=== PATIENT | female | born 1965 | race Caucasian/White ===

== ENCOUNTER → 2016-10-31 | Outpatient (CLI) | payer OTHER | LOC: EMI 09:00 | DX: H93.13 Tinnitus, bilateral (principal); R42 Dizziness and giddiness; H81.93 Unspecified disorder of vestibular function, bilateral; H93.293 Other abnormal auditory perceptions, bilateral | CPT/HCPCS: 70553; A9577; J7050 ==

== ENCOUNTER → 2016-11-13 | Outpatient (CLI) | payer OTHER ==
[2016-11-13 14:27] LABS: BUN/CREATININE RATIO 10 (0-10)
== END ==
LOC: LAB 13:20
PROVIDERS: Family Medicine
DX: M81.0 Age-related osteoporosis without current pathological fracture (principal); E78.5 Hyperlipidemia, unspecified
CPT/HCPCS: 36415; 80053; 80061

== ENCOUNTER → 2020-10-06 | Outpatient (CLI) | payer OTHER ==
[~2020-10-06] MED LIST: ACETAMINOPHEN500 M1 PO; CRESTOR40 MG PO; DIAZEPAM5 MG PO; ETHAMBUTOL HCL400 MG PO; INDERAL TAB 1010 MG PO; IPRAT-ALBUT 0.5-3 ML INH; ISONIAZID TAB300 MG PO; MEDROL DOSEPAK 24 MG PO; MIDODRINE HCL5 MG PO; MOXIFLOXACIN H400 MG PO; MUCINEX600 MG PO; NEBULIZER UNIT INH; PROAIR HFA8.5 GM INH; PROZAC 20 MG CA20 MG PO; PYRAZINAMIDE500 MG PO; RIFAMPIN300 MG PO; VITAMIN B-650 MG PO; ZITHROMAX250 MG PO
== END ==
LOC: MAMO 12:31
DX: Z12.31 Encounter for screening mammogram for malignant neoplasm of breast (principal)
CPT/HCPCS: 77063; 77067

== ENCOUNTER → 2020-10-27 | Outpatient (CLI) | payer OTHER ==
[2020-10-27 16:42] LABS: BUN/CREATININE RATIO 11 (0-10)
== END ==
LOC: LAB 13:11
PROVIDERS: Internal Medicine Nephrology
DX: E87.1 Hypo-osmolality and hyponatremia (principal); R91.8 Other nonspecific abnormal finding of lung field
CPT/HCPCS: 36415; 71046; 80048; 82436; 82533; 83935; 84133; 84300; 84443

== ENCOUNTER → 2020-11-17 | Outpatient (CLI) | payer OTHER | LOC: HEART 5 10:30 | DX: R06.00 Dyspnea, unspecified (principal); J98.4 Other disorders of lung; F17.210 Nicotine dependence, cigarettes, uncomplicated; Z87.01 Personal history of pneumonia (recurrent) | CPT/HCPCS: 71046; 94060; 94729 ==

== ENCOUNTER → 2020-12-01 | Outpatient (CLI) | payer OTHER | LOC: CT 11-29 15:30 | DX: Z09 Encounter for follow-up examination after completed treatment for conditions other than malignant neoplasm (principal); Z87.01 Personal history of pneumonia (recurrent); R91.1 Solitary pulmonary nodule | CPT/HCPCS: 71260; Q9967 ==

== ENCOUNTER → 2020-12-09 | Day surgery (SDC) | payer OTHER | END | disposition home or self-care (01) | LOC: OR 06:33 | DX: J98.4 Other disorders of lung (principal); J84.112 Idiopathic pulmonary fibrosis; J93.9 Pneumothorax, unspecified; J44.9 Chronic obstructive pulmonary disease, unspecified; K21.9 Gastro-esophageal reflux disease without esophagitis; F32.1 Major depressive disorder, single episode, moderate; F41.1 Generalized anxiety disorder; E78.5 Hyperlipidemia, unspecified; M81.0 Age-related osteoporosis without current pathological fracture; F17.210 Nicotine dependence, cigarettes, uncomplicated; Z79.899 Other long term (current) drug therapy | CPT/HCPCS: 71045; 71046; 76000; 87015; 87070; 87116; 87205; 87206; 93005; J2250; J2704; J7120 ==

== ENCOUNTER 2020-12-13 05:58 | Inpatient (IN) | payer OTHER ==
[~2020-12-13] VITALS: Ht 149.9 cm; Wt 51.7 kg
[~2020-12-13 05:58] MED LIST changes: -ACETAMINOPHEN500 M1 PO; -ETHAMBUTOL HCL400 MG PO; -IPRAT-ALBUT 0.5-3 ML INH; -ISONIAZID TAB300 MG PO; -MIDODRINE HCL5 MG PO; -MOXIFLOXACIN H400 MG PO; -MUCINEX600 MG PO; -NEBULIZER UNIT INH; -PROAIR HFA8.5 GM INH; -PYRAZINAMIDE500 MG PO; -RIFAMPIN300 MG PO; -VITAMIN B-650 MG PO
[2020-12-13 07:15] LABS: HEMOGLOBIN 14.1 gm/dl (12.3-15.3); RED BLOOD COUNT 5.1 M/UL (4.00-5.10); WHITE BLOOD COUNT 12.7 K/UL (4.5-11.0)
[2020-12-13 07:27] LABS: BUN/CREATININE RATIO 13 (0-10)
[2020-12-14 03:56] LABS: WHITE BLOOD COUNT 12.4 K/UL (4.5-11.0)
[2020-12-14 04:02] LABS: HEMOGLOBIN 11.7 gm/dl (12.3-15.3); RED BLOOD COUNT 4.22 M/UL (4.00-5.10)
[2020-12-14 04:51] LABS: BUN/CREATININE RATIO 18 (0-10)
[2020-12-14] MEDS ORDERED: IPRAT-ALBUT 0.5-3 ML INH (12:53)
[2020-12-14] MEDS ORDERED: NEBULIZER UNIT INH (12:53)
--- NOTE | 2020-12-14 15:24 | NUR ---
DR PINON REMOVED CHEST TUBE AT BEDSIDE. I COVERED WITH 4X4 AND TAPE ON SITE PER DR PINON INSTRUCTION. PT TOLERATED WELL. NO DRAINAGE OR BLOOD. SITE WNL. PT INSTRUCTED ON POST CARE, RESTRICTIONS AND WHEN TO CALL THE DOC FOR ANY COMPLICATIONS OR RETURN TO THE ER FOR SOB.
== END 2020-12-14 14:50 | disposition home or self-care (01) | DRG 199 ==
LOC: ER1 05:58 → MED SURG 4 16:28
PROVIDERS: Family Medicine; Physician Assistant Medical; ADMIT Internal Medicine
PROC: 0W9930Z Drainage of Right Pleural Cavity with Drainage Device, Percutaneous Approach (ICD-10-PCS; principal; 2020-12-14)
DX: J93.9 Pneumothorax, unspecified (principal); J96.01 Acute respiratory failure with hypoxia; R91.1 Solitary pulmonary nodule; E78.00 Pure hypercholesterolemia, unspecified; Z20.822 Contact with and (suspected) exposure to COVID-19; F17.210 Nicotine dependence, cigarettes, uncomplicated; Z90.710 Acquired absence of both cervix and uterus; Z98.51 Tubal ligation status; Z80.2 Family history of malignant neoplasm of other respiratory and intrathoracic organs
CPT/HCPCS: 32551; 71045; 80048; 80053; 82550; 82553; 83735; 83874; 84484; 85025; 85027; 85610; 93005; 99285; C1729; J2270; J2405; U0002

== ENCOUNTER 2020-12-17 12:45 | Inpatient (IN) | payer OTHER ==
[~2020-12-17] VITALS: Ht 149.9 cm; Wt 51.7 kg
[~2020-12-17 12:45] MED LIST changes: +IPRAT-ALBUT 0.5-3 ML INH; +NEBULIZER UNIT INH
[2020-12-17 15:26] LABS: HEMOGLOBIN 13.2 gm/dl (12.3-15.3); RED BLOOD COUNT 4.76 M/UL (4.00-5.10)
[2020-12-17 15:45] LABS: BUN/CREATININE RATIO 12 (0-10)
[2020-12-18 03:44] LABS: HEMOGLOBIN 11.4 gm/dl (12.3-15.3); WHITE BLOOD COUNT 11.4 K/UL (4.5-11.0)
[2020-12-18 03:50] LABS: RED BLOOD COUNT 4.22 M/UL (4.00-5.10)
[2020-12-18 04:01] LABS: BUN/CREATININE RATIO 10 (0-10)
[2020-12-18 10:04] LABS: ADENOVIRUS F 40/41 Not Detected (Negative); ASTROVIRUS Not Detected (Negative); CAMPYLOBACTER Not Detected (Negative); CLOSTRIDIUM DIFFICILE TOX A/B Not Detected (Negative); CRYPTOSPORIDIUM Not Detected (Negative); E.COLI 0157 Not Detected (Negative); ENTAMOEBA HISTOLYTICA Not Detected (Negative); ENTEROAGGREGATIVE E.COLI (EAEC Not Detected (Negative); ENTEROPATHOGENIC E.COLI (EPEC) Not Detected (Negative); ENTEROTOXIGENIC E.COLI (ETEC) Not Detected (Negative); GIARDIA LAMBLIA Not Detected (Negative); NOROVIRUS GI/GII Not Detected (Negative); PLESIOMONAS SHIGELLOIDES Not Detected (Negative); ROTOVIRUS A Not Detected (Negative); SALMONELLA Not Detected (Negative); SAPOVIRUS Not Detected (Negative); SHIG/ENTEROINVAS.ECOLI (EIEC) Not Detected (Negative); SHIGA-LIK TOX.PRO.E.COLI (STEC Not Detected (Negative); VIBRIO Not Detected (Negative); VIBRIO CHOLERAE Not Detected (Negative); YERSINIA ENTEROCOLITICA Not Detected (Negative)
[2020-12-19 03:14] LABS: HEMOGLOBIN 12.1 gm/dl (12.3-15.3); RED BLOOD COUNT 4.43 M/UL (4.00-5.10)
[2020-12-19 03:30] LABS: BUN/CREATININE RATIO 10 (0-10)
--- NOTE | 2020-12-19 16:54 | NUR ---
REPORT GIVEN TO ESME ON 3B AT [facility]
== END 2020-12-19 17:29 | disposition short-term general hospital (02) | DRG 178 ==
LOC: RAD 12:45 → PROG CARE 14:14
PROVIDERS: Internal Medicine Infectious Disease; ADMIT Internal Medicine Pulmonary Disease
DX: J69.0 Pneumonitis due to inhalation of food and vomit (principal); J93.9 Pneumothorax, unspecified; R19.7 Diarrhea, unspecified; E87.6 Hypokalemia; R91.1 Solitary pulmonary nodule; Z20.822 Contact with and (suspected) exposure to COVID-19; E78.5 Hyperlipidemia, unspecified; F17.210 Nicotine dependence, cigarettes, uncomplicated; M85.80 Other specified disorders of bone density and structure, unspecified site; K21.9 Gastro-esophageal reflux disease without esophagitis; I10 Essential (primary) hypertension; F32.9 Major depressive disorder, single episode, unspecified; F41.9 Anxiety disorder, unspecified; J45.909 Unspecified asthma, uncomplicated; I25.10 Atherosclerotic heart disease of native coronary artery without angina pectoris; Z90.710 Acquired absence of both cervix and uterus; Z80.8 Family history of malignant neoplasm of other organs or systems; Z82.49 Family history of ischemic heart disease and other diseases of the circulatory system; Z80.41 Family history of malignant neoplasm of ovary
CPT/HCPCS: ECHO; 36415; 71046; 71250; 80048; 80053; 83605; 83735; 83880; 85025; 86140; 87278; 87507; 93306; 94760; J1335; J3480; J7121; U0002

== ENCOUNTER 2021-01-04 06:55 | Inpatient (IN) | payer OTHER ==
[~2021-01-04] VITALS: Ht 149.9 cm; Wt 50.0 kg
[2021-01-04 08:10] LABS: HEMOGLOBIN 13.3 gm/dl (12.3-15.3); RED BLOOD COUNT 4.89 M/UL (4.00-5.10)
[2021-01-04 08:26] LABS: BUN/CREATININE RATIO 13 (0-10)
[2021-01-05 19:20] LABS: HEMOGLOBIN 11.8 gm/dl (12.3-15.3); WHITE BLOOD COUNT 20.3 K/UL (4.5-11.0)
[2021-01-05 19:34] LABS: RED BLOOD COUNT 4.36 M/UL (4.00-5.10)
[2021-01-05 19:38] LABS: BUN/CREATININE RATIO 10 (0-10)
[2021-01-06 07:26] LABS: HEMOGLOBIN 11.8 gm/dl (12.3-15.3); RED BLOOD COUNT 4.43 M/UL (4.00-5.10); WHITE BLOOD COUNT 19.9 K/UL (4.5-11.0)
[2021-01-06 08:09] LABS: BUN/CREATININE RATIO 8 (0-10)
[2021-01-06] MEDS ORDERED: PROAIR HFA8.5 GM INH (11:06)
[2021-01-06] MEDS ORDERED: VITAMIN B-650 MG PO (11:07)
[2021-01-06] MEDS ORDERED: RIFAMPIN300 MG PO (11:07)
[2021-01-06] MEDS ORDERED: PYRAZINAMIDE500 MG PO (11:07)
[2021-01-06] MEDS ORDERED: ACETAMINOPHEN500 M1 PO (11:08)
[2021-01-06] MEDS ORDERED: ETHAMBUTOL HCL400 MG PO (11:09)
[2021-01-06] MEDS ORDERED: ISONIAZID TAB300 MG PO (11:16)
[2021-01-06] MEDS ORDERED: MIDODRINE HCL5 MG PO (11:17)
[2021-01-06] MEDS ORDERED: MOXIFLOXACIN H400 MG PO (11:17)
[2021-01-06] MEDS ORDERED: MUCINEX600 MG PO (11:18)
[2021-01-07 04:20] LABS: HEMOGLOBIN 10.4 gm/dl (12.3-15.3); WHITE BLOOD COUNT 17.3 K/UL (4.5-11.0)
[2021-01-07 04:25] LABS: RED BLOOD COUNT 3.93 M/UL (4.00-5.10)
[2021-01-07 04:41] LABS: BUN/CREATININE RATIO 4 (0-10)
[2021-01-07 08:14] LABS: HIV SCREEN 4TH GENERATION WRFX Non Reactive (Non Reactive)
[2021-01-08 04:31] LABS: HEMOGLOBIN 11.4 gm/dl (12.3-15.3); WHITE BLOOD COUNT 19.9 K/UL (4.5-11.0)
[2021-01-08 04:35] LABS: BUN/CREATININE RATIO 6 (0-10)
[2021-01-08 05:32] LABS: RED BLOOD COUNT 4.38 M/UL (4.00-5.10)
[2021-01-09 03:55] LABS: HEMOGLOBIN 10.5 gm/dl (12.3-15.3); RED BLOOD COUNT 4.14 M/UL (4.00-5.10); WHITE BLOOD COUNT 20.1 K/UL (4.5-11.0)
[2021-01-09 04:27] LABS: BUN/CREATININE RATIO 10 (0-10)
--- NOTE | 2021-01-09 17:02 | NUR ---
1700 ASK PATIENT MULTIPLE TIMES TO WEAR BIPAP AND TO ALLOW TUBE FEEDING PLACEMENT PER MD REQUEST. PT REFUSES TO DO EITHER.
[2021-01-10 06:16] LABS: HEMOGLOBIN 10.9 gm/dl (12.3-15.3); RED BLOOD COUNT 4.08 M/UL (4.00-5.10); WHITE BLOOD COUNT 21.5 K/UL (4.5-11.0)
[2021-01-10 06:48] LABS: BUN/CREATININE RATIO 18 (0-10)
[2021-01-11 05:58] LABS: HEMOGLOBIN 11.3 gm/dl (12.3-15.3); RED BLOOD COUNT 4.27 M/UL (4.00-5.10)
[2021-01-11 06:05] LABS: BUN/CREATININE RATIO 29 (0-10)
[2021-01-11 06:14] LABS: WHITE BLOOD COUNT 15.5 K/UL (4.5-11.0)
[2021-01-12 06:50] LABS: HEMOGLOBIN 10.5 gm/dl (12.3-15.3); RED BLOOD COUNT 3.94 M/UL (4.00-5.10)
[2021-01-12 06:51] LABS: WHITE BLOOD COUNT 22.6 K/UL (4.5-11.0)
[2021-01-12 07:20] LABS: BUN/CREATININE RATIO 34 (0-10)
[2021-01-13 04:29] LABS: HEMOGLOBIN 9.1 gm/dl (12.3-15.3)
[2021-01-13 04:34] LABS: RED BLOOD COUNT 3.45 M/UL (4.00-5.10)
[2021-01-13 04:53] LABS: BUN/CREATININE RATIO 34 (0-10)
[2021-01-14 05:59] LABS: BUN/CREATININE RATIO 43 (0-10)
[2021-01-15 07:04] LABS: HEMOGLOBIN 9.9 gm/dl (12.3-15.3); RED BLOOD COUNT 3.7 M/UL (4.00-5.10); WHITE BLOOD COUNT 21.5 K/UL (4.5-11.0)
[2021-01-15 07:34] LABS: BUN/CREATININE RATIO 47 (0-10)
--- NOTE | 2021-01-16 00:55 | NUR ---
0025 DR NAVA AWARE OF PT FACIAL SWELLING. MD REPORTS TO REFER TO PULM. 0040 DR CHATMAN AWARE OF PT FACIAL SWELLING AND CURRENT VENT SETTINGS. OBTAINED ORDER TO CONTINUE PRONING UNTIL 8AM.
[2021-01-16 11:12] LABS: HEMOGLOBIN 10.1 gm/dl (12.3-15.3); RED BLOOD COUNT 3.81 M/UL (4.00-5.10); WHITE BLOOD COUNT 18.3 K/UL (4.5-11.0)
[2021-01-16 11:32] LABS: BUN/CREATININE RATIO 39 (0-10)
[2021-01-17 06:43] LABS: HEMOGLOBIN 11.6 gm/dl (12.3-15.3); WHITE BLOOD COUNT 16.3 K/UL (4.5-11.0)
[2021-01-17 07:04] LABS: RED BLOOD COUNT 4.38 M/UL (4.00-5.10)
[2021-01-17 07:43] LABS: BUN/CREATININE RATIO 48 (0-10)
[2021-01-18 06:30] LABS: HEMOGLOBIN 10.9 gm/dl (12.3-15.3); RED BLOOD COUNT 4.08 M/UL (4.00-5.10); WHITE BLOOD COUNT 18.2 K/UL (4.5-11.0)
[2021-01-18 07:15] LABS: BUN/CREATININE RATIO 46 (0-10)
[2021-01-19 06:46] LABS: HEMOGLOBIN 11.2 gm/dl (12.3-15.3); RED BLOOD COUNT 4.16 M/UL (4.00-5.10); WHITE BLOOD COUNT 21.9 K/UL (4.5-11.0)
[2021-01-19 07:13] LABS: BUN/CREATININE RATIO 43 (0-10)
[2021-01-20 06:45] LABS: HEMOGLOBIN 10.8 gm/dl (12.3-15.3); RED BLOOD COUNT 4.03 M/UL (4.00-5.10); WHITE BLOOD COUNT 19.6 K/UL (4.5-11.0)
[2021-01-20 07:06] LABS: BUN/CREATININE RATIO 42 (0-10)
[2021-01-21 08:17] LABS: HEMOGLOBIN 10.5 gm/dl (12.3-15.3); RED BLOOD COUNT 4.01 M/UL (4.00-5.10); WHITE BLOOD COUNT 20.5 K/UL (4.5-11.0)
[2021-01-21 08:39] LABS: BUN/CREATININE RATIO 64 (0-10)
[2021-01-21 11:34] LABS: BORDETELLA PARAPERTUSSIS Not Detected (Not Detectd); BORDETELLA PERTUSSIS Not Detected (Not Detectd); CHLAMYDIA PNEUMONIAE Not Detected (Not Detectd); CORONAVIRUS HKU1 Not Detected (Not Detectd); CORONAVIRUS NL63 Not Detected (Not Detectd); CORONAVIRUS OC43 Not Detected (Not Detectd); CORONOAVIRUS 229E Not Detected (Not Detectd); HUMAN METAPNEUMOVIRUS Not Detected (Not Detectd); HUMAN RHINOVIRUS/ENTEROVIRUS Not Detected (Not Detectd); INFLUENZA A Not Detected (Not Detectd); INFLUENZA B Not Detected (Not Detectd); MYCOPLASMA PNEUMONIAE Not Detected (Not Detectd); PARAINFLUENZA VIRUS 1 Not Detected (Not Detectd); PARAINFLUENZA VIRUS 2 Not Detected (Not Detectd); PARAINFLUENZA VIRUS 3 Not Detected (Not Detectd); PARAINFLUENZA VIRUS 4 Not Detected (Not Detectd); RESPIRATORY SYNCYTIAL VIRUS Not Detected (Not Detectd)
[2021-01-21 13:11] LABS: SARS-CoV-2 NOT DETECTED (Not Detectd)
[2021-01-22 06:50] LABS: HEMOGLOBIN 11.8 gm/dl (12.3-15.3)
[2021-01-22 07:13] LABS: BUN/CREATININE RATIO 67 (0-10)
[2021-01-22 07:17] LABS: RED BLOOD COUNT 4.42 M/UL (4.00-5.10); WHITE BLOOD COUNT 13.7 K/UL (4.5-11.0)
[2021-01-22 17:45] LABS: ADENOVIRUS F 40/41 Not Detected (Negative); ASTROVIRUS Not Detected (Negative); CAMPYLOBACTER Not Detected (Negative); CLOSTRIDIUM DIFFICILE TOX A/B Not Detected (Negative); CRYPTOSPORIDIUM Not Detected (Negative); E.COLI 0157 Not Detected (Negative); ENTAMOEBA HISTOLYTICA Not Detected (Negative); ENTEROAGGREGATIVE E.COLI (EAEC Not Detected (Negative); ENTEROPATHOGENIC E.COLI (EPEC) Not Detected (Negative); ENTEROTOXIGENIC E.COLI (ETEC) Not Detected (Negative); GIARDIA LAMBLIA Not Detected (Negative); NOROVIRUS GI/GII Not Detected (Negative); PLESIOMONAS SHIGELLOIDES Not Detected (Negative); ROTOVIRUS A Not Detected (Negative); SALMONELLA Not Detected (Negative); SAPOVIRUS Not Detected (Negative); SHIG/ENTEROINVAS.ECOLI (EIEC) Not Detected (Negative); SHIGA-LIK TOX.PRO.E.COLI (STEC Not Detected (Negative); VIBRIO Not Detected (Negative); VIBRIO CHOLERAE Not Detected (Negative); YERSINIA ENTEROCOLITICA Not Detected (Negative)
[2021-01-23 04:49] LABS: RED BLOOD COUNT 3.76 M/UL (4.00-5.10); WHITE BLOOD COUNT 12.5 K/UL (4.5-11.0)
[2021-01-23 07:21] LABS: BUN/CREATININE RATIO 79 (0-10)
[2021-01-24 05:36] LABS: HEMOGLOBIN 9.8 gm/dl (12.3-15.3); RED BLOOD COUNT 3.79 M/UL (4.00-5.10); WHITE BLOOD COUNT 12.3 K/UL (4.5-11.0)
[2021-01-24 06:17] LABS: BUN/CREATININE RATIO 75 (0-10)
[2021-01-25 06:45] LABS: RED BLOOD COUNT 4.03 M/UL (4.00-5.10); WHITE BLOOD COUNT 14.3 K/UL (4.5-11.0)
[2021-01-25 09:16] LABS: BUN/CREATININE RATIO 77 (0-10)
[2021-01-26 06:45] LABS: HEMOGLOBIN 9.8 gm/dl (12.3-15.3); RED BLOOD COUNT 3.77 M/UL (4.00-5.10); WHITE BLOOD COUNT 15.4 K/UL (4.5-11.0)
[2021-01-26 07:13] LABS: BUN/CREATININE RATIO 74 (0-10)
== END 2021-01-26 13:56 | disposition expired | DRG 870 ==
LOC: ER1 06:55 → CCU 01-05 18:30 → CDU 01-05 18:30 → PROG CARE 01-05 21:15 → 2 EAST 01-09 10:51 → CCU 01-10 15:37
PROVIDERS: Internal Medicine; Internal Medicine Infectious Disease; Internal Medicine Pulmonary Disease; Physician Assistant Medical; ADMIT Family Medicine
PROC: 0B9J8ZX Drainage of Left Lower Lung Lobe, Via Natural or Artificial Opening Endoscopic, Diagnostic (ICD-10-PCS; 2021-01-10)
PROC: 0B9D8ZX Drainage of Right Middle Lung Lobe, Via Natural or Artificial Opening Endoscopic, Diagnostic (ICD-10-PCS; 2021-01-10)
PROC: 0B9F8ZX Drainage of Right Lower Lung Lobe, Via Natural or Artificial Opening Endoscopic, Diagnostic (ICD-10-PCS; 2021-01-10)
PROC: 0BH17EZ Insertion of Endotracheal Airway into Trachea, Via Natural or Artificial Opening (ICD-10-PCS; 2021-01-10)
PROC: 0DH67UZ Insertion of Feeding Device into Stomach, Via Natural or Artificial Opening (ICD-10-PCS; 2021-01-10)
PROC: 5A1955Z Respiratory Ventilation, Greater than 96 Consecutive Hours (ICD-10-PCS; principal; 2021-01-10 12:50)
PROC: 0BCB8ZZ Extirpation of Matter from Left Lower Lobe Bronchus, Via Natural or Artificial Opening Endoscopic (ICD-10-PCS; 2021-01-25)
PROC: 0BC68ZZ Extirpation of Matter from Right Lower Lobe Bronchus, Via Natural or Artificial Opening Endoscopic (ICD-10-PCS; 2021-01-25)
DX: A41.89 Other specified sepsis (principal); J69.0 Pneumonitis due to inhalation of food and vomit; R65.21 Severe sepsis with septic shock; E43 Unspecified severe protein-calorie malnutrition; J80 Acute respiratory distress syndrome; B49 Unspecified mycosis; J44.0 Chronic obstructive pulmonary disease with (acute) lower respiratory infection; A15.9 Respiratory tuberculosis unspecified; E87.2 Acidosis; E44.0 Moderate protein-calorie malnutrition; I95.89 Other hypotension; L89.152 Pressure ulcer of sacral region, stage 2; L89.322 Pressure ulcer of left buttock, stage 2; L89.312 Pressure ulcer of right buttock, stage 2; Z51.5 Encounter for palliative care; Z20.822 Contact with and (suspected) exposure to COVID-19; E78.5 Hyperlipidemia, unspecified; F32.9 Major depressive disorder, single episode, unspecified; F41.9 Anxiety disorder, unspecified; Z66 Do not resuscitate; R53.81 Other malaise; J44.9 Chronic obstructive pulmonary disease, unspecified; E83.39 Other disorders of phosphorus metabolism; D64.89 Other specified anemias; K21.9 Gastro-esophageal reflux disease without esophagitis; D47.3 Essential (hemorrhagic) thrombocythemia; E87.6 Hypokalemia; E83.51 Hypocalcemia; E87.70 Fluid overload, unspecified; E11.65 Type 2 diabetes mellitus with hyperglycemia; Z79.4 Long term (current) use of insulin; Z68.22 Body mass index [BMI] 22.0-22.9, adult; Z90.710 Acquired absence of both cervix and uterus; Z72.0 Tobacco use
CPT/HCPCS: 36415; 36600; 71045; 74018; 80048; 80053; 80076; 80202; 81001; 82140; 82310; 82330; 82550; 82553; 82728; 82803; 82962; 83036; 83605; 83615; 83690; 83735; 83874; 83880; 84100; 84132; 84484; 85007; 85025; 85027; 85362; 85379; 85384; 85610; 85652; 85730; 86140; 87015; 87040; 87070; 87081; 87086; 87116; 87205; 87206; 87252; 87389; 87507; 87633; 93005; 94002; 94003; 94640; 94660; 94664; 94760; 96374; 96375; 96376; 99285; C9113; G0378; J0171; J0330; J1120; J1205; J1650; J1940; J2060; J2185; J2248; J2250; J2270; J2405; J2543; J2704; J2920; J2930; J3370; J3411; J7030; J7050; J7070; P9047; U0002